=== PATIENT | male | born 1950 | race Caucasian/White ===

== ENCOUNTER 2018-03-21 08:23 | Outpatient (CLI) | payer BC ==
--- NOTE | 2018-03-21 15:04 | MRI ---
MRI PELVIS WITH AND WITHOUT IV CONTRAST: (PROSTATE) Date: 03/21/18 HISTORY: Elevated PSA. PSA measurements were 6.21 on 02/24/18 and 6.1 on 07/18/14 (normal 0-4). No biopsies pe rformed. COMPARISON: None. TECHNIQUE: Multiplanar, multisequence MRI of pelvis was performed with and without IV contrast using the prostat e protocol. An independent 3D workstation was used for review. FINDINGS: The prostate gland is enlarged measuring 5.0 x 4.5 x 5.0 cm and a volume of 58.5 mL. No focal abnormal area of restricted diffusion is seen in the peripheral zone. No lentiform area of a bnormally decreased T2 signal is noted in the transition zone. No focal arterial enhancing mass is id entified. The prostatic capsule is intact. The seminal vesicles appear normal. No lymphadenopathy see n. The pelvic side wall is normal. No bone marrow abnormalities are seen. There is sigmoid diverticulosis. No free fluid is seen in the pelvis. Heterogeneity in the prostate gland is consistent with BPH. IMPRESSION: PI-RADS 2: Low (clinically significant prostate cancer is unlikely to be present). This study was interpreted in consultation with Dr. Kevin Flores, who concurs. POS: [facility]
== END 2018-03-21 08:24 | disposition home or self-care (01) ==
LOC: TBSIIMAG 08:23
PROVIDERS: ATTEND Urology
DX: R97.20 Elevated prostate specific antigen [PSA] (principal)
CPT/HCPCS: 72197

== ENCOUNTER 2018-09-30 19:08 | Emergency (ER) | payer BC ==
[2018-09-30 20:23] LABS: #Basophils 0.1 thou/uL (0.0-0.2); #Eosinphils 0.1 thou/uL (0.0-0.7); #Lymphocytes 1.4 thou/uL (1.20-3.40); %Basophils 0.8 % (0.0-1.0); %Eosinophils 1.4 % (0.0-10.0); %Lymphocytes 14.6 % (21.0-51.0); %Monocytes 10.5 % (0.0-10.0); %Neutrophils 72.7 % (42.0-75.0); Hemoglobin 15.6 g/dL (14.0-18.0); Mean Corpuscular HGB CONC 35.7 g/dL (32.0-36.0); Mean Corpuscular Hemoglobin 31.6 pg (27.0-31.0); Mean Corpuscular Volume 88.7 fL (78.0-98.0); Mean Platelet Volume 8.2 fL (7.4-10.4); Platelet Count 171 thou/uL (130-400); RBC Distribution Width 10.8 % (11.5-14.5); Red Blood Cell (RBC) Count 4.93 mill/uL (4.70-6.10); White Blood Cell (WBC) Count 9.6 thou/uL (4.8-10.8)
[2018-09-30 20:23] LABS: Bilirubin Negative (Negative); Blood, Urine Negative (Negative); Clarity Slightly Cloudy (Clear); Glucose, Urine (Dipstick) Negative (Negative); Leukocyte Negative (Negative); Nitrite Negative (Negative); Protein, Urine (Dipstick) 30 mg/dL (Neg-Trace); Specific Gravity, Urine 1.025 (1.005-1.030); Urobilinogen 0.2 mg/dL (0.2-1.0)
[2018-09-30 20:27] LABS: Bacteria/HPF Rare-Few HPF (None Seen); RBC/HPF 0-3 HPF (0-3); Squamous Epithelial 0-3 HPF (0-3); WBC/HPF 0-3 HPF (0-3)
[2018-09-30 20:31] LABS: ALT (SGPT) 22 U/L (8-55); AST (SGOT) 23 U/L (5-34); Albumin 4.2 g/dL (3.4-4.8); Alkaline Phosphatase 76 U/L (40-150); Anion Gap 16 mmol/L (10-20); BUN (Urea Nitrogen) 17 mg/dL (8.4-25.7); Bilirubin, Total 0.7 mg/dL (0.2-1.2); Calc. Creatinine Clearance 0 mL/min (70-130); Calcium 9.6 mg/dL (7.8-10.44); Carbon Dioxide 24 mmol/L (23-31); Chloride 106 mmol/L (98-107); Estimated GFR-MDRD 56; Globulin 3.4 g/dL (2.4-3.5); Glucose 103 mg/dL (80-115); Potassium 3.8 mmol/L (3.5-5.1); Protein, Total 7.6 g/dL (5.8-8.1); Sodium 142 mmol/L (136-145)
--- NOTE | 2018-09-30 20:59 | ULT ---
TESTICULAR ULTRASOUND WITH THAYER SCALE, COLOR FLOW AND SPECTRAL DOPPLER IMAGIN09/30/18 HISTORY: Testicular pain radiating from abdomen. FINDINGS: The right testis measures 4.6 x 2.3 x 2.9 cm and the left testis measures 4.3 x 2.6 x 3 cm. No testic ular mass or microlithiasis are seen. Symmetric flow is demonstrated to the testes and epididymi bila terally. There are cysts in the epididymal head on either side. Bilateral hydroceles are seen, left g reater than right. IMPRESSION: 1. No evidence of testicular mass or torsion. 2. Epididymal head cysts/spermatoceles. 3. Bilateral hydroceles, left greater than right. POS: [facility]
--- NOTE | 2018-09-30 21:15 | CT ---
CT ABDOMEN AND PELVIS WITH IV CONTRAST: 09/30/18 HISTORY: Abdominal pain, difficulty urinating and painful urination. FINDINGS: The lung bases are unremarkable. The liver, spleen, pancreas, adrenal glands and kidneys are normal. No calcified gallstones are seen. No free air, free fluid, or lymphadenopathy seen in the abdomen or pelvis. A normal appearing appendix is seen. There is colonic diverticulosis without evidence of dive rticulitis. No aneurysmal dilatation of the abdominal aorta is seen. the prostate is enlarged. Degene rative changes are present in the spine. IMPRESSION: 1. Colonic diverticulosis. 2. Prostatic enlargement. POS: [facility]
[2018-09-30] MEDS ORDERED: HYDROcodone/Acetaminophen 5/325 mg Tablet ONE (21:28)
[2018-10-04 02:04] LABS: Chlamydia by PCR Not Detected (NotDetected); GC by PCR Not Detected (NotDetected)
== END 2018-09-30 21:39 | disposition home or self-care (01) ==
LOC: SCSER 19:08
DX: N41.9 Inflammatory disease of prostate, unspecified (principal); N40.0 Benign prostatic hyperplasia without lower urinary tract symptoms; Z79.82 Long term (current) use of aspirin; Z79.899 Other long term (current) drug therapy
CPT/HCPCS: 74177; 76870; 80053; 81003; 81015; 85025; 87086; 87491; 87591